=== PATIENT | male | born 1990 ===

== ENCOUNTER 2017-10-09 20:20 | Emergency (ER) | payer OTHER ==
--- NOTE | 2017-10-09 20:45 | UC ---
General HPI - HPI Summary HPI Summary: This patient is a 27 year old M presenting to [facility] with a chief complaint of right mucosa white spot on the inside of his cheek since 2 days ago. The patient reports slight pain and notes he thought it was an infection. The patient rates the pain 1/10 in severity. Symptoms aggravated by nothing. Symptoms alleviated by nothing. - History of Current Complaint Chief Complaint: UCGeneralIllness Stated Complaint: SOFT TISSUE COMPLAINT Time Seen by Provider: 10/09/17 20:29 Hx Obtained From: Patient Onset/Duration: Gradual Onset, Lasting Days, Still Present Timing: Constant Onset Severity: Mild Current Severity: Mild Pain Intensity: 1 Pain Location at: inner right cheek Aggravating: nothing Alleviating: nothing - Allergy/Home Medications Allergies/Adverse Reactions: Allergies Allergy/AdvReac Type Severity Reaction Status Date / Time No Known Allergies Allergy Verified 10/09/17 20:33 Home Medications: Home Medications Loratadine [Claritin 10 MG CAP] 10 mg PO DAILY 10/09/17 [History Confirmed 10/09] PMH/Surg Hx/FS Hx/Imm Hx Previously Healthy: Yes - Surgical History Surgical History: Yes Surgery Procedure, Year, and Place: appy - Family History Known Family History: Positive: None - Social History Alcohol Use: Weekly Substance Use Type: None Smoking Status (MU): Never Smoked Tobacco Review of Systems Constitutional: Negative - negative fever ENT: Other - pain on inside of right cheek Respiratory: Negative - negative cough Gastrointestinal: Negative - negative vomiting All Other Systems Reviewed And Are Negative: Yes Physical Exam - Summary Physical Exam Summary: VITAL SIGNS: Reviewed. GENERAL: Patient is a well-developed and nourished MALE who is lying comfortable in the stretcher. Patient is not in any acute respiratory distress. HEAD AND FACE: Normocephalic EYES: PERRLA, EOMI x 2. EARS: Hearing grossly intact. MOUTH: Oropharynx within normal limits. Canker sore on right inner cheek NECK: Supple, trachea is midline, no adenopathy, no JVD, no carotid bruit. CHEST: Symmetric, no tenderness at palpation LUNGS: Clear to auscultation bilaterally. No wheezing or crackles. CVS: Regular rate and rhythm, S1 and S2 present, no murmurs or gallops appreciated. ABDOMEN: Soft, non-tender. Bowel sounds are normal. No abdominal abnormal pulsations. EXTREMITIES: Full ROM in all major joints, no edema, no cyanosis or clubbing. NEURO: Alert and oriented x 3. No acute neurological deficits. Speech is normal and follows commands. SKIN: Dry and warm Triage Information Reviewed: Yes Vital Signs: Initial Vital Signs Temp 98.5 F 10/09/17 20:29 Pulse 62 10/09/17 20:29 Resp 17 10/09/17 20:29 BP 137/87 10/09/17 20:29 Pulse Ox 98 10/09/17 20:29 Vital Signs Reviewed: Yes Course/Dx - Course Course Of Treatment: Patient with a canker sore. Patient was discharged home with follow-up with PCP. - Differential Dx - Multi-Symptom Provider Diagnoses: canker sore Discharge - Sign-Out/Discharge Documenting (check all that apply): Patient Departure - Discharge Plan Condition: Stable Disposition: HOME Patient Education Materials: Canker Sores (ED) Referrals: [facility] [[facility]] No Primary Care Phys,NOPCP [Primary Care Provider] - - Billing Disposition and Condition Condition: STABLE Disposition: Home
== END 2017-10-09 20:50 | disposition home or self-care (01) ==
LOC: UCEAST 20:20
DX: K12.0 Recurrent oral aphthae (principal)
CPT/HCPCS: 99202; G0463